=== PATIENT | male | born 1990 | race Caucasian/White ===

== ENCOUNTER 2022-11-15 17:54 | Emergency (ER) | payer OTHER, BC ==
[2022-11-15 19:01] VITALS: PULSE 79; RESP 20; TEMP 97.8
[2022-11-15] MEDS ORDERED: LIDOCAINE 1% INJ 10MG/ML (30 ML VIAL-PF) SQ ONE (19:32)
--- NOTE | 2022-11-15 19:50 | ED ---
Wound/Laceration HPI - General Chief Complaint: Wound/Laceration Stated Complaint: [facility] - lt hand lac Time Seen by Provider: 11/15/22 19:11 Source: patient, RN notes reviewed Mode of arrival: ambulatory Limitations: no limitations - History of Present Illness Initial Comments: This is a 32-year-old male who presents to the emergency department for a left hand laceration. States that while he was at work, he was moving a metal sheet with a coworker. He subsequently cut the top of his left hand with a piece of metal. States that it was bleeding heavily initially and it has since stopped. His tetanus status is up-to-date, believes that he had one within the last 1-2 years. Pain is controlled at this time. Denies any fevers, chills, sore throat, cough, dyspnea, chest pain, palpitations, abdominal pain, nausea, vomiting, diarrhea, back pain, or headaches. Extremity Location: Left: Hand Place: work Patient Tetanus UTD: Yes Context: accidental - Related Data Previous Rx's Medication Instructions Recorded Cephalexin [Keflex] 500 mg PO Q8HR 5 Days #15 cap 11/15/22 Allergies Allergy/AdvReac Type Severity Reaction Status Date / Time No Known Allergies Allergy Verified 11/15/22 19:02 Review of Systems ROS Statement: Those systems with pertinent positive or pertinent negative responses have been documented in the HPI. ROS Other: All systems not noted in ROS Statement are negative. Past Medical History Past Medical History: No Reported History History of Any Multi-Drug Resistant Organisms: None Reported Past Surgical History: Orthopedic Surgery Past Psychological History: Anxiety, Bipolar, Depression, PTSD Smoking Status: Current every day smoker Past Alcohol Use History: None Reported Past Drug Use History: None Reported General Exam Limitations: no limitations General appearance: alert, in no apparent distress Head exam: Present: atraumatic, normocephalic, normal inspection Respiratory exam: Present: normal lung sounds bilaterally. Absent: respiratory distress, wheezes, rales, rhonchi, stridor Cardiovascular Exam: Present: regular rate, normal rhythm, normal heart sounds. Absent: systolic murmur, diastolic murmur, rubs, gallop, clicks Neurological exam: Present: alert, oriented X3, CN II-XII intact Psychiatric exam: Present: normal affect, normal mood Skin exam: Present: other (3cm laceration on the dorsal aspect of the left hand. Visible dermal tissue. No active bleeding.) Course Vital Signs 11/15/22 11/15/22 18:57 21:44 Temperature 97.8 F Pulse Rate 79 79 Respiratory 20 20 Rate Blood Pressure 126/78 122/80 O2 Sat by Pulse 97 97 Oximetry Procedures - Laceration Laceration #1 Consent Obtained: verbal consent Indication: laceration Site: hand Size (cm): 3 Description: linear Depth: simple, single layer Anesthetic Used: lidocaine 1% Anesthesia Technique: local infiltration Amount (mls): 3 Type of Sutures: nylon Size of Sutures: 5-0 Number of Sutures: 2 Technique: simple, interrupted Medical Decision Making - Medical Decision Making This is a 32-year-old male who presents to the emergency department for a laceration to the left hand. Was pt. sent in by a medical professional or institution? @ -No Did you speak to anyone other than the patient for history? @ -No Did you review nursing and triage notes? @ -Agree, accurate with regards to the patient's symptoms. Were old charts reviewed? @ -No Differential Diagnosis? @ -Not applicable X-rays interpreted by me (1pt min.)? @ -X-ray of the left hand obtained. My interpretation identifies no acute fractures or dislocations. What testing was considered but not performed? (CT, X-rays, U/S, labs)? Why? @ -None What meds were considered but not given? Why? @ -I had wanted to give the patient his Vivitrol injection, which he is due for tomorrow. The patient states that he is new to the area and due to insurance issues, he is unable to get this on time. He is also unable to get an appointment with [facility] in a timely manner. I was willing to give this to the patient, however hospital protocols mandate that this is only ordered by psychiatry. Did you discuss the management of the patient with other professionals? @ -No Did you reconcile home meds? @ -No Was smoking cessation discussed for >3mins.? @ -No Was critical care preformed (if so, how long)? @ -No Were there social determinants of health that impacted care today? How? (Homelessness, low income, unemployed, alcoholism, drug addiction, transportation, low edu. Level, literacy, decrease access to med. care, custodial, rehab)? @ -No Was there de-escalation of care discussed even if they declined? (Discuss DNR or withdrawal of care, Hospice)? @ -No What co-morbidities impacted this encounter? (DM, HTN, Smoking, COPD, CAD, Cancer, CVA, Hep., AIDS, mental health diagnosis, sleep apnea, morbid obesity)? @ -History of polysubstance abuse regarding the Vistaril injection Was patient admitted / discharged? @ -Discharged. X-ray obtained with my interpretation listed above. The radiologist reports concern of a metallic density in the hand. I did have him soak his hand in sterile water to clean out the wound and I was unable to directly visualize any foreign bodies or metallic densities. This was discussed with the patient, we are not going to search for anything due to risk of further injury. Sutures were placed. Given the dirty nature of the injury and concern for underlying foreign body, prescription for Keflex was provided with dosing instructions reviewed. Signs and symptoms of infection were discussed. Advised ibuprofen and Tylenol as needed for pain relief. Advised he contact [facility] again in the morning regarding the Vivitrol injection and see if there are any other options would allow him to receive this on time. Drug Therapy requiring intensive monitoring for toxicity (Heparin, Nitro, Insulin, Cardizem)? @ -None Were any procedures done? @ -Yes, laceration repair with sutures. Diagnosis/symptom? @ -Laceration Acute, or Chronic, or Acute on Chronic? @ -Acute Uncomplicated (without systemic symptoms) or Complicated (systemic symptoms)? @ -Uncomplicated Side effects of treatment? @ -Infection Exacerbation, Progression, or Severe Exacerbation] @ -Not applicable Poses a threat to life or bodily function? @ -No Return precautions reviewed in depth, the patient is instructed to return to the emergency department with any new, worsening, or concerning symptoms. Patient verbalized understanding. This case was discussed in detail with the attending ED physician. Presentation, findings, and treatment plan discussed in detail as well. - Radiology Data Radiology results: report reviewed, image reviewed Disposition Clinical Impression: Laceration Disposition: HOME SELF-CARE Instructions (If sedation given, give patient instructions): Care For Your Stitches (ED) Additional Instructions: Return to the emergency department with any new, worsening, or concerning symptoms and in 5-7 days for removal of the stitches. Take the antibiotic as prescribed for 5 days. Alternate with ibuprofen and Tylenol as needed for pain relief. Please contact [facility] at for a follow up appointment and to receive your Vivitrol injection. Follow up with your primary care provider in 1- 2 days. Prescriptions: Cephalexin [Keflex] 500 mg PO Q8HR 5 Days #15 cap Is patient prescribed a controlled substance at d/c from ED?: No Referrals: None,Stated [Primary Care Provider] - 1-2 days
--- NOTE | 2022-11-15 20:03 | XR ---
EXAMINATION TYPE: XR hand complete LT DATE OF EXAM: 11/15/2022 CLINICAL HISTORY: Cut injury with pain. TECHNIQUE: Frontal, lateral and oblique images of the left hand are obtained. COMPARISON: None. FINDINGS: There is no acute fracture/dislocation evident in the left hand. The joint spaces in the l eft hand appear within normal limits. There is 3 mm linear foreign body suspected metallic fragment o verlying the dorsal surface at level of the base of the fourth middle phalanx. IMPRESSION: As above.
[2022-11-15] MEDS ORDERED: NALTREXONE MICROSPHERES 380 MG VIAL (NO COST - VIVITROL) IM ONE (20:20)
[2022-11-15] MEDS ORDERED: CEPHALEXIN 500MG STARTER PACK 4 CAP BTL PO STA (20:41)
[2022-11-15 21:45] VITALS: BP 122/80
== END 2022-11-15 21:45 | disposition home or self-care (01) ==
LOC: EC 17:54
DX: S61.412A Laceration without foreign body of left hand, initial encounter (principal); F41.9 Anxiety disorder, unspecified; F31.9 Bipolar disorder, unspecified; F17.200 Nicotine dependence, unspecified, uncomplicated; W26.8XXA Contact with other sharp object(s), not elsewhere classified, initial encounter
CPT/HCPCS: 73130; 99283; 12002; J2001

== ENCOUNTER 2023-07-26 00:53 | Emergency (ER) | payer OTHER ==
[2023-07-26] MEDS ORDERED: KETOROLAC 15 MG/ML 1 ML VIAL IVP STA (03:14)
[2023-07-26] MEDS ORDERED: SODIUM CHLORIDE 0.9% 1,000 ML IV ONE (03:14)
[2023-07-26 03:50] LABS: Basophils % (A) 0 %; Eosinophils # (A) 0.7 k/uL (0-0.7); Eosinophils % (A) 7 %; HCT 39.5 % (39.0-53.0); HGB 13.1 gm/dL (13.0-17.5); Lymphocytes # (A) 2.8 k/uL (1.0-4.8); Lymphocytes % (A) 30 %; MCH 31.3 pg (25.0-35.0); MCHC 33.1 g/dL (31.0-37.0); MCV 94.4 fL (80.0-100.0); Mean Platelet Volume 8.7; Monocytes # (A) 0.6 k/uL (0-1.0); Monocytes % (A) 6 %; Neutrophils # (A) 5.3 k/uL (1.3-7.7); Neutrophils % (A) 56 %; Platelet Count 240 k/uL (150-450); RBC 4.18 m/uL (4.30-5.90); RDW 12.6 % (11.5-15.5); WBC 9.6 k/uL (3.8-10.6)
--- NOTE | 2023-07-26 04:04 | ED ---
General Adult HPI - General Chief complaint: Fever Stated complaint: Weakness Time Seen by Provider: 07/26/23 03:10 Source: patient Mode of arrival: ambulatory Limitations: no limitations - History of Present Illness Initial comments: 33-year-old male presenting with chief complaint of fatigue. Patient states that over the last day he has had increasing fatigue, fever, cough, and "I just don't feel good". States that he is sleeping frequently throughout the day. Patient was recently treated for MRSA infection to the right second digit. Lali ent states that while he still has swelling and limited range of motion, this has remained mostly unchanged since his discharge. No nausea, vomiting, diarrhea. No numbness or tingling. Patient was started on Keflex recently and states that he lost his medication. - Related Data Previous Rx's Medication Instructions Recorded Ketorolac [Toradol] 10 mg PO Q8HR PRN #21 tab 07/11/23 Sulfamethox-Tmp 800-160Mg [Bactrim 1 tab PO Q12HR 10 Days #20 tab 07/11/23 DS 800-160 mg] Cephalexin [Keflex] 500 mg PO Q6HR 7 Days #28 cap 07/15/23 HYDROcodone/APAP 7.5-325MG [Polson 1 tab PO Q6HR PRN 3 Days #12 tab 07/15/23 7.5-325] methocarbamoL [Robaxin-750] 1,500 mg PO TID PRN #30 tab 07/15/23 Sulfamethox-Tmp 800-160Mg [Bactrim 1 tab PO Q12HR 7 Days #14 tab 07/26/23 DS 800-160 mg] Allergies Allergy/AdvReac Type Severity Reaction Status Date / Time No Known Allergies Allergy Verified 07/15/23 16:59 Review of Systems ROS Statement: Those systems with pertinent positive or pertinent negative responses have been documented in the HPI. ROS Other: All systems not noted in ROS Statement are negative. Past Medical History Past Medical History: No Reported History History of Any Multi-Drug Resistant Organisms: MRSA Date of last positivie culture/infection: 07/02/23 MDRO Source:: right second finger Past Surgical History: Orthopedic Surgery Additional Past Surgical History / Comment(s): Right Arm, rt index finger Past Psychological History: Anxiety, Bipolar, Depression, PTSD Smoking Status: Current every day smoker Past Alcohol Use History: None Reported Past Drug Use History: None Reported General Exam Limitations: no limitations General appearance: alert, in no apparent distress Head exam: Present: atraumatic, normocephalic, normal inspection Eye exam: Present: normal appearance, EOMI Neck exam: Present: normal inspection, full ROM Respiratory exam: Present: normal lung sounds bilaterally. Absent: respiratory distress, wheezes, rales, rhonchi, stridor Cardiovascular Exam: Present: regular rate, normal rhythm, normal heart sounds. Absent: systolic murmur, diastolic murmur, rubs, gallop, clicks Extremities exam: Present: other (Right second digit is swollen with limited range of motion, patient states that this has been the case since his discharge., No changes) Neurological exam: Present: alert, oriented X3, CN II-XII intact Psychiatric exam: Present: normal affect, normal mood Skin exam: Present: warm, dry, intact, normal color. Absent: rash Course Vital Signs 07/26/23 07/26/23 01:30 04:54 Temperature 97.9 F Pulse Rate 91 71 Respiratory 18 16 Rate Blood Pressure 117/75 119/75 O2 Sat by Pulse 98 Oximetry Medical Decision Making - Medical Decision Making Was pt. sent in by a medical professional or institution (, PA, GRAPHIC DESIGN TEACHER, urgent care, hospital, or [facility]...) When possible be specific @ -No Did you speak to anyone other than the patient for history (EMS, parent, family, police, friend...)? What history was obtained from this source @ -No Did you review nursing and triage notes (agree or disagree)? Why? @ -I reviewed and agree with nursing and triage notes Were old charts reviewed (outside hosp., previous admission, EMS record, old EKG, old radiological studies, urgent care reports/EKG's, [facility] records)? Report findings @ -Most recent ER visit was reviewed Differential Diagnosis (chest pain, altered mental status, abdominal pain women, abdominal pain men, vaginal bleeding, weakness, fever, dyspnea, syncope, headache, dizziness, GI bleed, back pain, seizure, CVA, palpatations, mental health, musculoskeletal)? @ -Differential includes viral infection, postop complication, this was not an all inclusive list EKG interpreted by me (3pts min.). @ -As above X-rays interpreted by me (1pt min.). @ -Formal report is pending. Image is interpreted by my attending and myself, there is no evidence of fracture or bony destruction suggestive of osteomyelitis. CT interpreted by me (1pt min.). @ -None done U/S interpreted by me (1pt. min.). @ -None done What testing was considered but not performed or refused? (CT, X-rays, U/S, labs)? Why? @ -None What meds were considered but not given or refused? Why? @ -None Did you discuss the management of the patient with other professionals (professionals i.e. DrTon, PA, GRAPHIC DESIGN TEACHER, lab, RT, psych nurse, social work manager, it audit manager, teacher, senior loan officer, case checker)? Give summary @ -No Was smoking cessation discussed for >3mins.? @ -No Was critical care preformed (if so, how long)? @ -No Were there social determinants of health that impacted care today? How? (Homelessness, low income, unemployed, alcoholism, drug addiction, transportation, low edu. Level, literacy, decrease access to med. care, custodial, rehab)? @ -No Was there de-escalation of care discussed even if they declined (Discuss DNR or withdrawal of care, Hospice)? DNR status @ -No What co-morbidities impacted this encounter? (DM, HTN, Smoking, COPD, CAD, Cancer, CVA, ARF, Chemo, Hep., AIDS, mental health diagnosis, sleep apnea, morbid obesity)? @ -None Was patient admitted / discharged? Hospital course, mention meds given and route, prescriptions, significant lab abnormalities, going to OR and other pertinent info. @ -33-year-old male presenting with chief complaint of fatigue, body aches, and URI-like symptoms. He also reports that he recently lost his antibiotics he is taking for his right index finger, he had a recent infection which required incision and drainage. Physical examination is conducted. Patient reports that his finger is not more swollen or painful then usual. No new changes regarding the finger. Lab work shows no leukocytosis or anemia. Patient is negative for influenza, RSV, and Covid. Finger x-ray shows no fracture or bony destruction. Patient is educated on today's findings on supportive management at home. He is instructed to follow-up with his surgeon. Antibiotics are sent in due to the patient recently losing his course. Follow-up with PCP. Report back to ER with any new or worsening symptoms. Discussed return parameters and answered all questions. Patient conveyed verbal understanding and agreed to the plan. I discussed this case in detail with my attending Dr. [place] Undiagnosed new problem with uncertain prognosis? @ -No Drug Therapy requiring intensive monitoring for toxicity (Heparin, Nitro, Insulin, Cardizem)? @ -No Were any procedures done? @ -No Diagnosis/symptom? @ -URI Acute, or Chronic, or Acute on Chronic? @ -Acute Uncomplicated (without systemic symptoms) or Complicated (systemic symptoms)? @ -Uncomplicated Side effects of treatment? @ -No Exacerbation, Progression, or Severe Exacerbation? @ -No Poses a threat to life or bodily function? How? (Chest pain, [place], OR, pneumonia, PE, COPD, DKA, ARF, appy, cholecystitis, CVA, Diverticulitis, Homicidal, Suicidal, threat to staff... and all critical care pts) @ -No - Lab Data Result diagrams: 07/26/23 03:36 07/26/23 03:36 Lab Results 07/26/23 07/26/23 07/26/23 Range/Units 03:20 03:36 03:36 WBC 9.6 (3.8-10.6) k/uL RBC 4.18 L (4.30-5.90) m/uL Hgb 13.1 (13.0-17.5) gm/dL Hct 39.5 (39.0-53.0) % MCV 94.4 (80.0-100.0) fL MCH 31.3 (25.0-35.0) pg MCHC 33.1 (31.0-37.0) g/dL RDW 12.6 (11.5-15.5) % Plt Count 240 (150-450) k/uL MPV 8.7 Neutrophils % 56 % Lymphocytes % 30 % Monocytes % 6 % Eosinophils % 7 % Basophils % 0 % Neutrophils # 5.3 (1.3-7.7) k/uL Lymphocytes # 2.8 (1.0-4.8) k/uL Monocytes # 0.6 (0-1.0) k/uL Eosinophils # 0.7 (0-0.7) k/uL Basophils # 0.0 (0-0.2) k/uL Sodium 137 (137-145) mmol/L Potassium 3.9 (3.5-5.1) mmol/L Chloride 108 H (98-107) mmol/L Carbon Dioxide 24 (22-30) mmol/L Anion Gap 5 mmol/L BUN 15 (9-20) mg/dL Creatinine 0.81 (0.66-1.25) mg/dL Est GFR (CKD-EPI)AfAm >90 (>60 ml/min/1.73 sqM) Est GFR (CKD-EPI)NonAf >90 (>60 ml/min/1.73 sqM) Glucose 93 (74-99) mg/dL Calcium 8.6 (8.4-10.2) mg/dL Total Bilirubin 0.2 (0.2-1.3) mg/dL AST 23 (17-59) U/L ALT 24 (4-49) U/L Alkaline Phosphatase 49 (38-126) U/L Total Protein 6.0 L (6.3-8.2) g/dL Albumin 3.3 L (3.5-5.0) g/dL Influenza Type A (PCR) Not Detected (Not Detectd) Influenza Type B (PCR) Not Detected (Not Detectd) RSV (PCR) Not Detected (Not Detectd) SARS-CoV-2 (PCR) Not Detected (Not Detectd) Disposition Clinical Impression: URI (upper respiratory infection) Disposition: HOME SELF-CARE Condition: Fair Instructions (If sedation given, give patient instructions): Upper Respiratory Infection (ED) Additional Instructions: Follow-up with PCP and surgeon. Report back to ER with any new or worsening symptoms. Prescriptions: Sulfamethox-Tmp 800-160Mg [Bactrim DS 800-160 mg] 1 tab PO Q12HR 7 Days #14 tab Is patient prescribed a controlled substance at d/c from ED?: No Referrals: None,Stated [Primary Care Provider] - 1-2 days Nicki Hassan MD [STAFF PHYSICIAN] - 1-2 days Taryn Larkin DO [Doctor of Osteopathic Medicine] - 1-2 days Time of Disposition: 04:16
[2023-07-26 04:05] LABS: ALT 24 U/L (4-49); AST 23 U/L (17-59); African American GFR (CKD) >90 (>60 ml/min/1.73 sqM); Albumin 3.3 g/dL (3.5-5.0); Alkaline Phosphatase 49 U/L (38-126); Anion Gap 5 mmol/L; Blood Urea Nitrogen 15 mg/dL (9-20); Calcium 8.6 mg/dL (8.4-10.2); Carbon Dioxide 24 mmol/L (22-30); Chloride 108 mmol/L (98-107); Glucose 93 mg/dL (74-99); Non-African American GFR(CKD) >90 (>60 ml/min/1.73 sqM); Potassium 3.9 mmol/L (3.5-5.1); Sodium 137 mmol/L (137-145); Total Bilirubin 0.2 mg/dL (0.2-1.3)
--- NOTE | 2023-07-26 07:02 | XR ---
EXAMINATION TYPE: XR finger RT DATE OF EXAM: 07/26/2023 COMPARISON: 07/15/2023 HISTORY: 33-year-old male second digit infection, treated for MRSA, red and swollen, pain TECHNIQUE: 3 views coned down right second finger FINDINGS: Generalized soft tissue swelling of the index finger has increased from 07/15/2023. There appears to be a skin defect located along the radial palmar aspect near the level of the DIP joint. No underlying acute fracture, subluxation, or dislocation seen. No retained radiopaque foreign body seen. Partially visualized boxer's fracture fifth metacarpal. IMPRESSION: The degree of soft tissue swelling of the index finger has increased from 07/15/2023. There appears to be an ulcer/wound now along the radial palmar aspect of the finger. No retained radiopaque foreign parker dy or underlying acute osseous abnormality seen.
[2023-07-26 15:53] VITALS: BP 119/75; PULSE 71; RESP 16; TEMP 97.9
== END 2023-07-26 04:55 | disposition home or self-care (01) ==
LOC: EC 00:53
DX: J06.9 Acute upper respiratory infection, unspecified (principal); F17.200 Nicotine dependence, unspecified, uncomplicated; Z20.822 Contact with and (suspected) exposure to COVID-19
CPT/HCPCS: 36415; 80053; 85025; 87636; 73140; 99284; 96374; 96361; J1885

== ENCOUNTER 2023-09-12 23:40 | Observation (INO) | payer OTHER ==
[2023-09-12] MEDS ORDERED: SODIUM CHLORIDE 0.9% 1,000 ML IV STA (23:44)
[2023-09-12] MEDS ORDERED: LORazepam 2 MG/ML INJ IV STA (23:44)
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
[2023-09-13] MEDS ORDERED: LORazepam 2 MG/ML INJ IV STA ×2
[2023-09-13 00:22] LABS: Basophils % (A) 0 %; Eosinophils # (A) 0.4 k/uL (0-0.7); Eosinophils % (A) 3 %; HCT 44.7 % (39.0-53.0); HGB 15.1 gm/dL (13.0-17.5); Lymphocytes # (A) 3.3 k/uL (1.0-4.8); Lymphocytes % (A) 31 %; MCH 32.1 pg (25.0-35.0); MCHC 33.9 g/dL (31.0-37.0); MCV 94.6 fL (80.0-100.0); Mean Platelet Volume 9.5; Monocytes # (A) 0.4 k/uL (0-1.0); Monocytes % (A) 4 %; Neutrophils # (A) 6.1 k/uL (1.3-7.7); Neutrophils % (A) 58 %; Platelet Count 274 k/uL (150-450); RBC 4.72 m/uL (4.30-5.90); RDW 13.4 % (11.5-15.5); WBC 10.6 k/uL (3.8-10.6)
[2023-09-13 00:29] LABS: ALT 31 U/L (4-49); AST 31 U/L (17-59); African American GFR (CKD) >90 (>60 ml/min/1.73 sqM); Albumin 4.6 g/dL (3.5-5.0); Alkaline Phosphatase 62 U/L (38-126); Anion Gap 15 mmol/L; Blood Urea Nitrogen 14 mg/dL (9-20); Calcium 9.2 mg/dL (8.4-10.2); Carbon Dioxide 22 mmol/L (22-30); Chloride 108 mmol/L (98-107); Glucose 92 mg/dL (74-99); Non-African American GFR(CKD) >90 (>60 ml/min/1.73 sqM); Potassium 4.4 mmol/L (3.5-5.1); Sodium 145 mmol/L (137-145); Total Bilirubin 0.3 mg/dL (0.2-1.3); Total Protein 7.7 g/dL (6.3-8.2)
[2023-09-13 00:30] LABS: INR 0.8 (<1.2); Prothrombin Time 9.6 sec (10.0-12.5)
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
[2023-09-13 00:51] LABS: Amphetamine Screen,Urine Not Detected (NotDetected); Barbiturate Screen,Urine Not Detected (NotDetected); Benzodiazepines Screen,Urine Not Detected (NotDetected); Cocaine Screen,Urine Not Detected (NotDetected); Methadone Screen, Urine Not Detected (NotDetected); Opiate Screen,Urine Not Detected (NotDetected); Oxycodone Screen, Urine Not Detected (NotDetected); Phencyclidine Screen,Urine Not Detected (NotDetected); Tricyclic Antidepressant,Urine Not Detected (NotDetected); Urn Cannabinoid Scrn Detected (NotDetected)
--- NOTE | 2023-09-13 00:53 | XR ---
EXAM: XR Pelvis, 1 or 2 Views CLINICAL HISTORY: ITS.REASON XR Reason: Trauma TECHNIQUE: Frontal view of the pelvis. COMPARISON: No relevant prior studies available. FINDINGS: Bones/joints: Unremarkable. No acute fracture. No dislocation. Soft tissues: Unremarkable. IMPRESSION: No evidence of acute fracture or dislocation on limited single frontal view.
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
[2023-09-13 00:58] LABS: Alcohol 280 mg/dL
[2023-09-13] MEDS ORDERED: FLUORESCEIN STRIPS 1 MG STRIP BOTH EYES ONE (01:16)
[2023-09-13] MEDS ORDERED: PROPARACAINE 0.5% OPHTH DROPS 15 ML BTL BOTH EYES STA (01:16)
--- NOTE | 2023-09-13 02:28 | CT ---
EXAM: CT Chest With Intravenous Contrast CLINICAL HISTORY: ITS.REASON CT Reason: trauma TECHNIQUE: Axial computed tomography images of the chest with intravenous contrast. CTDI is 11.3 mGy and DLP is 848 mGy-cm. This CT exam was performed using one or more of the following dose reduction techniques: automated exposure control, adjustment of the mA and/or kV according to patient size, and/or use of iterative reconstruction technique. COMPARISON: No relevant prior studies available. FINDINGS: Artifacts: Some artifact from patient's arms. Lungs: Calcified granuloma in the right lower lobe. Biapical blebs. Pleural space: Unremarkable. No pneumothorax. No significant effusion. Heart: Unremarkable. No cardiomegaly. No significant pericardial effusion. No significant coronary artery calcifications. Mediastinum: Multiple calcified right hilar and mediastinal nodes, likely granulomatous. Bones/joints: Unremarkable. No acute fracture. No dislocation. Soft tissues: Unremarkable. Vasculature: Unremarkable. No thoracic aortic aneurysm. Lymph nodes: See above. IMPRESSION: No evidence of acute internal traumatic injury or fracture. EXAM: CT Abdomen and Pelvis With Intravenous Contrast CLINICAL HISTORY: ITS.REASON CT Reason: trauma TECHNIQUE: Axial computed tomography images of the abdomen and pelvis with intravenous contrast. CTDI is 11.3 mGy and DLP is 1000 mGy-cm. This CT exam was performed using one or more of the following dose reduction techniques: automated exposure control, adjustment of the mA and/or kV according to patient size, and/or use of iterative reconstruction technique. COMPARISON: No relevant prior studies available. FINDINGS: Artifacts: Some artifact from patient's arms. Lung bases: Unremarkable. No mass. No consolidation. ABDOMEN: Liver: Unremarkable. No mass. Gallbladder and bile ducts: Unremarkable. No calcified stones. No ductal dilation. Pancreas: Unremarkable. No mass. No ductal dilation. Spleen: Calcified splenic granulomas. Adrenals: Unremarkable. No mass. Kidneys and ureters: Unremarkable. No solid mass. No hydronephrosis. Stomach and bowel: Unremarkable. No obstruction. No mucosal thickening. PELVIS: Appendix: Normal appendix. Bladder: Unremarkable. No mass. Reproductive: Unremarkable as visualized. ABDOMEN and PELVIS: Intraperitoneal space: Unremarkable. No free air. No significant fluid collection. Bones/joints: No acute fracture. No dislocation. Soft tissues: Unremarkable. Vasculature: Unremarkable. No abdominal aortic aneurysm. Lymph nodes: Unremarkable. No enlarged lymph nodes.
[2023-09-13] MEDS ORDERED: NALOXONE 0.4 MG/ML 1 ML VIAL IV PRN (03:19)
[2023-09-13] MEDS ORDERED: LORazepam 2 MG/ML INJ IV PRN ×2 (04:18)
[2023-09-13] MEDS ORDERED: THIAMINE 100 MG/ML 2 ML VIAL IM STA (04:18)
[2023-09-13] MEDS: SODIUM CHLORIDE 0.9% 1,000 ML IV SCH ×2 (05:52→14:42)
[2023-09-13 09:45] LABS: Hepatitis B Surface Antigen Nonreactive; Hepatitis C IgG Antibody Nonreactive
[2023-09-13] MEDS: LORazepam 2 MG/ML INJ IV PRN ×3 (11:02→17:06)
[2023-09-13] MEDS ORDERED: TETRACAINE 0.5% OPHTH (PF) DROPS 4 ML BTL LEFT EYE STA ×3 (13:40→14:28)
[2023-09-13] MEDS: ACETAMINOPHEN TAB 500 MG TAB PO SCH ×2 (13:51→20:15)
[2023-09-13] MEDS: KETOROLAC 15 MG/ML 1 ML VIAL IVP SCH ×3 (13:52→23:06)
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
[2023-09-13] MEDS ORDERED: TETRACAINE 1% 10 MG/ML 2 ML AMP MISCELLANE STA (14:06)
[2023-09-13] MEDS: TROPICAMIDE 1% OPHTH DROPS 2 ML BTL LEFT EYE PRN ×2 (14:54→15:03)
[2023-09-13] MEDS: CIPROFLOXACIN 0.3% OPHTH SOLN 5 ML BTL LEFT EYE SCH ×2 (17:07→20:15)
[2023-09-13] MEDS: HEPARIN SODIUM,PORCINE 5,000 UNIT/ML 1 ML VIAL SQ SCH (20:24)
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
[2023-09-14 03:18] VITALS: RESP 16
[2023-09-14] MEDS: ACETAMINOPHEN TAB 500 MG TAB PO SCH ×2 (04:37→09:01)
[2023-09-14] MEDS: KETOROLAC 15 MG/ML 1 ML VIAL IVP SCH ×2 (05:56→13:14)
[2023-09-14] MEDS: SODIUM CHLORIDE 0.9% 1,000 ML IV SCH (06:00)
[2023-09-14] MEDS: HEPARIN SODIUM,PORCINE 5,000 UNIT/ML 1 ML VIAL SQ SCH (09:00)
[2023-09-14] MEDS ORDERED: THIAMINE 100 MG TAB PO SCH (09:00)
[2023-09-14] MEDS: CIPROFLOXACIN 0.3% OPHTH SOLN 5 ML BTL LEFT EYE SCH ×2 (09:02→13:17)
[2023-09-14 11:28] VITALS: TEMP 97.4
[2023-09-14 14:09] VITALS: BP 121/65; PULSE 71
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
== END 2023-09-14 16:12 | disposition home or self-care (01) ==
LOC: EDBD → EC 23:40 → 3SCARD 09-13 03:19 → MERGE 09-13 03:19 → 3SCARD 09-13 04:00
PROVIDERS: ADMIT Surgery Plastic and Reconstructive Surgery; ATTEND Surgery Plastic and Reconstructive Surgery
DX: S02.32XA Fracture of orbital floor, left side, initial encounter for closed fracture (principal); Y04.8XXA Assault by other bodily force, initial encounter; F10.229 Alcohol dependence with intoxication, unspecified; Y90.8 Blood alcohol level of 240 mg/100 ml or more
CPT/HCPCS: 96376 ×3; 96372; 96375; 96361; 96374; 99285; 36415; 93005; 86900; 86901; 86803; 86701; 80053; 84484; 85025; 85610; 85730; 86850; 87340; 86704; 80306; 80320; 72170; 71045; 72125; 70450; 71260; 74177; G0378 ×2; J2060 ×2; J3411; J1885 ×2; Q9967